=== PATIENT | male | born 2000 | race Hispanic/Latino ===

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

== ENCOUNTER 2023-06-06 19:52 | Emergency (ER) | payer MEDICAID, OTHER ==
[~2023-06-06] VITALS: Ht 157.5 cm; Wt 75.7 kg
[2023-06-06 20:14] VITALS: BP 122/72; PULSE 93; RESP 20
[2023-06-06] MEDS ORDERED: IBUPROFEN 600 MG TABLET PO ONE (21:30)
== END 2023-06-07 | disposition home or self-care (01) ==
LOC: EDH 19:52
DX: S90.32XA Contusion of left foot, initial encounter (principal); X58.XXXA Exposure to other specified factors, initial encounter; Y93.02 Activity, running; Y92.89 Other specified places as the place of occurrence of the external cause; Y99.8 Other external cause status
CPT/HCPCS: 73630